=== PATIENT | male | born 1950 | race Caucasian/White ===

== ENCOUNTER 2019-09-05 14:52 | Inpatient (IN) | payer MEDICARE, OTHER ==
[~2019-09-05] VITALS: Ht 190.5 cm; Wt 93.5 kg
--- NOTE | 2019-09-05 15:30 | NUR ---
BIB BROTHER C/O CP, SOB, DIARRHEA, BURNING ON URINATION, WEAKNESS. PATIENT A/OX4, BREATHING EVEN AND UNLABORED, NO SOB NOTED, ATTACHED TO THE GRADE TEACHER.
[2019-09-05 15:47] LABS: BASOPHILS # (AUTO) 0.1 /CMM (0.0-0.2); EOSINOPHILS % (AUTO) 1.2 % (0.0-6.0); HEMATOCRIT 46 % (39-51); HEMOGLOBIN 15.1 g/dL (13.5-17.5); LYMPHOCYTES # (AUTO) 1.5 /CMM (0.8-4.8); LYMPHOCYTES % (AUTO) 23.5 % (20.0-44.0); MEAN CORPUSCULAR HGB CONC 33 g/dl (31.0-36.0); MEAN CORPUSCULAR VOLUME 98 fL (80-96); MONOCYTES # (AUTO) 0.5 /CMM (0.1-1.30); MONOCYTES % (AUTO) 7.8 % (2.0-12.0); NEUTROPHILS # (AUTO) 4.2 /CMM (1.8-8.9); NEUTROPHILS % (AUTO) 66.5 % (43.0-81.0); PLATELET COUNT (AUTO) 154 /CMM (150-450); RED BLOOD CELL COUNT(AUTO) 4.71 MIL/uL (4.5-6.0); WHITE BLOOD COUNT (AUTO) 6.4 K/uL (4.3-11.0)
[2019-09-05 16:06] LABS: CALCIUM, SERUM 9.5 mg/dL (8.5-10.1); CREATININE 1.2 mg/dL (0.6-1.3); POTASSIUM 3.7 mmol/L (3.5-5.1)
[2019-09-05 16:11] LABS: ALBUMIN 3.7 g/dL (3.4-5.0); BILIRUBIN,DIRECT 0.4 mg/dL (0.0-0.2); BILIRUBIN,TOTAL 2.7 mg/dL (0.2-1.0); TOTAL PROTEIN, SERUM 7.3 g/dL (6.4-8.2)
--- NOTE | 2019-09-05 16:46 | NUR ---
MICKY BAUER MADE AWARE OF ELEVATED BP. URINE SAMPLE SENT TO LAB.
[2019-09-05 16:49] LABS: APPEARANCE,URINE Clear (CLEAR); BILIRUBIN,URINE SMALL (NEGATIVE); BLOOD, URINE Negative Ery/uL (NEGATIVE); COLOR,URINE Yellow (YELLOW); KETONES,URINE 15 (NEGATIVE); LEUKOCYTE ESTERASE ,URINE Negative (NEGATIVE); NITRITE, URINE Negative (NEGATIVE); PH,URINE 5.5 (5.0-8.0); PROTEIN,URINE 100 mg/dl (NEGATIVE); UGLUCOSE Negative (NEGATIVE)
[2019-09-05 17:20] LABS: BACTERIA,URINE RARE /HPF (None Seen); SQUAMOUS EPITHELIAL CELL,UR 0-2 /HPF (None Seen)
--- NOTE | 2019-09-05 18:56 | NUR ---
CALLED [facility]
--- NOTE | 2019-09-05 19:14 | NUR ---
CALLED [facility].
[2019-09-05] MEDS ORDERED: hydrALAZINE HCL IV 20 MG VIAL ONE (19:23)
[2019-09-05] MEDS ORDERED: hydrALAZINE HCL IV 20 MG VIAL IV ONE (19:30)
[2019-09-05] MEDS ORDERED: DONE10TA11 PO (19:36)
[2019-09-05] MEDS ORDERED: INSU100V27 SQ (19:36)
[2019-09-05] MEDS ORDERED: DOXA2TAB PO (19:36)
[2019-09-05] MEDS ORDERED: INSU100V7 SQ (19:36)
[2019-09-05] MEDS ORDERED: CLON0.1T14 PO (19:36)
[2019-09-05] MEDS ORDERED: CARV6.25 PO (19:36)
[2019-09-05] MEDS ORDERED: APIX5TAB4 PO (19:36)
[2019-09-05] MEDS ORDERED: ATOR40TA GT (19:36)
[2019-09-05] MEDS ORDERED: PANT40TA2 PO (19:36)
[2019-09-05] MEDS ORDERED: HYDR-4075 PO (19:36)
[2019-09-05] MEDS ORDERED: ASPI-1100 PO (19:36)
--- NOTE | 2019-09-05 21:13 | NUR ---
REPORT GIVEN TO [facility] ON THE THIRD FLOOR
[2019-09-05] MEDS ORDERED: CLONIDINE HCL 0.1 MG TABLET PO PRN (21:30)
--- NOTE | 2019-09-05 21:36 | NUR ---
PT WAS TRANSFERRED TO THE THIRD FLOOR UNDER ACLS
[2019-09-05 21:50] VITALS: BP 182/73
--- NOTE | 2019-09-05 21:50 | NUR ---
MS RN ADMITTING NOTES PATIENT RECEIVED ONTO UNIT VIA GURNEY ACCOMPANIED BY ER STAFF. PATIENT ABLE TO AMBULATE, BUT UNSTEADY. A/O X4, STABLE ON RA WITH BEATHING EVEN AND UNLABORED, NO SOB NOTED. NO SIGNS OF ACUTE DISTRESS. NO COMPLAINTS OF PAIN OR DISCOMFORT. SKIN ASSESSMENT DONE. TELE MONITORS PLACED. VSS TAKEN. ALL BELONGINGS ACCOUNTED FOR. PATIENT ORIENTED TO ROOM AND STAFF. SAFETY PRECAUTIONS IN PLACE WITH BED IN LOWEST POSITION, CALL LIGHT WITHIN REACH, BREAKS ON, AND SIDE RAILS UP. WILL CONTINUE TO MONITOR.
--- NOTE | 2019-09-05 21:51 | NUR ---
MS RN NOTES PRN CLONIDINE ADMINISTERED DUE TO BP OF 182/ 73/ WILL CONTINUE TO MONITOR
[2019-09-05] MEDS ORDERED: ATORVASTATIN 40 MG TABLET GT SCH (22:00)
[2019-09-05 22:30] VITALS: BP 182/73
[2019-09-05] MEDS ORDERED: ACETAMINOPHEN 325 MG TABLET PO PRN (22:30)
[2019-09-05] MEDS ORDERED: MAGNESIUM HYDROXIDE 30 ML UDC PO PRN (22:30)
[2019-09-05] MEDS ORDERED: Z GUARD REMEDY 2 OZ OINT TP PRN (22:30)
[2019-09-05] MEDS ORDERED: *INSULIN REGULAR(HUMULIN R)HUM 100 UNIT/ML VIAL SQ PRN (22:30)
[2019-09-05] MEDS ORDERED: DEXTROSE 50%-WATER 50 ML DISP.SYRIN IV PRN (22:30)
[2019-09-05] MEDS ORDERED: MORPHINE SULFATE INJ 2 MG/ML DISP.SYRIN IV PRN (22:30)
[2019-09-05] MEDS ORDERED: MAG HYDROX/AL HYDROX/SIMETH 30 ML UDC PO PRN (22:30)
[2019-09-05] MEDS ORDERED: HYDROCODONE/APAP 5/325MG 1 EACH TABLET PO PRN (22:30)
[2019-09-05] MEDS ORDERED: ONDANSETRON HCL/PF 4 MG/2 ML VIAL IVP PRN (22:30)
[2019-09-05] MEDS: DONEPEZIL 5 MG TABLET PO SCH (22:33)
[2019-09-05] MEDS ORDERED: hydrALAZINE HCL IV 20 MG VIAL IV PRN (23:00)
[2019-09-06] VITALS: BP 166/89
[2019-09-06] MEDS: NITROGLYCERIN PACKET 1 GM PACKET TOP SCH ×2 (00:14→05:37)
[2019-09-06 04:00] VITALS: BP 154/87
--- NOTE | 2019-09-06 06:35 | NUR ---
HOME LIGHTING ADVISER CLOSING NOTES PATIENT IN BED RESTING A//O X3- PERIODS OF FORGETFULNESS. STABLE ON RA WITH BREATHING EVEN AND UNLABORED, NO SOB NOTED. NO SIGNS OF ACUTE DISTRESS. NO COMPLAINTS OF PAIN OR DISCOMFORT. TELE MONITOR READING SR WITH OCASSIONAL PVC, PAC. IV LOCATED ON AC #18 SL. SAFETY PRECAUTIONS IN PLACE WITH BED IN LOWEST POSITION, CALL LIGHT WITHIN REACH, BREAKS ON, BED ALARM ON, AND SIDE RAILS UP X2. ALL NEEDS ATTENDED TO THROUGHOUT THE NIGHT. WILL ENDORSE TO ONCOMING SHIFT ABOUT JOSI.
[2019-09-06] MEDS: BLOOD SUGAR DIAGNOSTIC 1 EACH STRIP VI SCH ×4 (06:40→21:24)
[2019-09-06] MEDS: INSULIN REGULAR, HUMAN 100 UNIT/ML 3 ML VIAL SQ PRN ×2 (06:50→18:14)
[2019-09-06 06:57] LABS: CALCIUM, SERUM 9.6 mg/dL (8.5-10.1); CREATININE 1.3 mg/dL (0.6-1.3); MAGNESIUM 1.8 mg/dL (1.8-2.4); PHOSPHORUS 3.1 mg/dL (2.5-4.9); POTASSIUM 3.5 mmol/L (3.5-5.1)
[2019-09-06 08:00] VITALS: BP 163/47
--- NOTE | 2019-09-06 08:20 | NUR ---
ms rn received on bed, awake,alert,oriented x3,not in any form of distress, respirations even and unlabored,no sob noted, lungs are clear,abdomen soft,positive bowel sounds,denies pain at this time,all needs attended.
[2019-09-06] MEDS: hydrALAZINE HCL 10 MG TABLET PO SCH ×3 (09:00→18:10)
[2019-09-06] MEDS ORDERED: ASPIRIN EC 325 MG TABLET.DR PO SCH (09:00)
[2019-09-06] MEDS ORDERED: hydrALAZINE HCL 10 MG TABLET PO SCH (09:00)
[2019-09-06] MEDS ORDERED: CARVEDILOL 6.25 MG TABLET PO SCH (09:00)
[2019-09-06] MEDS: CARVEDILOL 6.25 MG TABLET PO SCH ×2 (09:15→18:10)
[2019-09-06] MEDS: APIXABAN 5 MG TABLET PO SCH ×2 (09:17→18:05)
[2019-09-06] MEDS: VALSARTAN 80 MG TABLET PO SCH (09:17)
[2019-09-06] MEDS: DOXAZOSIN MESYLATE (1 MG) 1 MG TABLET PO SCH ×2 (09:18→18:06)
[2019-09-06] MEDS: PANTOPRAZOLE 40 MG TABLET.DR PO SCH (09:22)
--- NOTE | 2019-09-06 09:30 | NUR ---
ms roberson breakfast served,due meds given,tolerated well.
--- NOTE | 2019-09-06 11:00 | NUR ---
ms rn was seen by pt ,walks w/ walker.
--- NOTE | 2019-09-06 12:00 | NUR ---
ms roberson bs -170 -refused coverage.
[2019-09-06 12:33] LABS: BASOPHILS % (AUTO) 0.6 % (0.0-2.0); EOSINOPHILS % (AUTO) 1.5 % (0.0-6.0); HEMATOCRIT 45 % (39-51); HEMOGLOBIN 14.8 g/dL (13.5-17.5); LYMPHOCYTES # (AUTO) 1.3 /CMM (0.8-4.8); LYMPHOCYTES % (AUTO) 20.5 % (20.0-44.0); MEAN CORPUSCULAR HGB CONC 33 g/dl (31.0-36.0); MEAN CORPUSCULAR VOLUME 98 fL (80-96); MONOCYTES # (AUTO) 0.6 /CMM (0.1-1.30); MONOCYTES % (AUTO) 9.8 % (2.0-12.0); NEUTROPHILS # (AUTO) 4.3 /CMM (1.8-8.9); NEUTROPHILS % (AUTO) 67.6 % (43.0-81.0); PLATELET COUNT (AUTO) 151 /CMM (150-450); RED BLOOD CELL COUNT(AUTO) 4.59 MIL/uL (4.5-6.0); WHITE BLOOD COUNT (AUTO) 6.3 K/uL (4.3-11.0)
[2019-09-06 16:00] VITALS: BP 157/88
--- NOTE | 2019-09-06 18:00 | NUR ---
ms roberson [id number] units of regular insulin given.
--- NOTE | 2019-09-06 19:02 | NUR ---
ms rn on bed, no distress noted.
--- NOTE | 2019-09-06 19:25 | NUR ---
MS RN OPENING NOTES PATIENT AWAKE IN BED. A/OX3-4. ABLE TO VERBALIZE NEEDS. ON ROOM AIR. NO C/O OF SOB OR CHEST PAIN AT THIS TIME. IV PRESENT ON RIGHT AC, SIZE 18, INTACT & PATENT, HEP LOCKED. SAFETY MEASURES IN PLACE. BED LOCKED, SIDE RAIL X2, SEMI-GREEN'S POSITION, CALL LIGHT WITHIN REACH. WILL CONTINUE TO MONITOR.
[2019-09-06 20:07] VITALS: BP_SYST 158; BP_SYST 162; BP_DIAS 90; BP_DIAS 97
[2019-09-06] MEDS: DONEPEZIL 5 MG TABLET PO SCH (21:24)
--- NOTE | 2019-09-07 06:20 | NUR ---
MS RN CLOSING NOTES PATIENT REMAINED STABLE DURING ENTIRE SHIFT. NO ACUTE CHANGES. A/O X3-4. ON ROOM AIR. NO C/O OF SOB OR CHEST PAIN. SAFETY MEASURES IN PLACE. WILL ENDORSE TO DAY SHIFT NURSE TO FOLLOW PLAN OF CARE.
[2019-09-07] MEDS: BLOOD SUGAR DIAGNOSTIC 1 EACH STRIP VI SCH ×4 (06:40→21:10)
[2019-09-07] MEDS: PANTOPRAZOLE 40 MG TABLET.DR PO SCH (06:40)
[2019-09-07] MEDS: INSULIN REGULAR, HUMAN 100 UNIT/ML 3 ML VIAL SQ PRN ×3 (06:56→21:53)
--- NOTE | 2019-09-07 07:30 | NUR ---
ms rn received on bed, awake,alert, oriented x3,periods of confusion,not in nay form of distress, respirations even and unlabored,no sob noted,will monitor patient.
[2019-09-07 08:00] VITALS: BP 168/86
[2019-09-07 08:25] LABS: ALBUMIN 3.4 g/dL (3.4-5.0); BILIRUBIN,TOTAL 2.3 mg/dL (0.2-1.0); CALCIUM, SERUM 9.1 mg/dL (8.5-10.1); CREATININE 1.3 mg/dL (0.6-1.3); MAGNESIUM 1.7 mg/dL (1.8-2.4); PHOSPHORUS 3.5 mg/dL (2.5-4.9); POTASSIUM 3.4 mmol/L (3.5-5.1); TOTAL PROTEIN, SERUM 6.9 g/dL (6.4-8.2)
[2019-09-07 08:27] LABS: BASOPHILS % (AUTO) 0.8 % (0.0-2.0); EOSINOPHILS % (AUTO) 2.4 % (0.0-6.0); HEMATOCRIT 44 % (39-51); HEMOGLOBIN 14.4 g/dL (13.5-17.5); LYMPHOCYTES # (AUTO) 1.8 /CMM (0.8-4.8); MEAN CORPUSCULAR HGB CONC 33 g/dl (31.0-36.0); MEAN CORPUSCULAR VOLUME 98 fL (80-96); MONOCYTES # (AUTO) 0.6 /CMM (0.1-1.30); MONOCYTES % (AUTO) 10.6 % (2.0-12.0); NEUTROPHILS # (AUTO) 2.8 /CMM (1.8-8.9); NEUTROPHILS % (AUTO) 52.2 % (43.0-81.0); PLATELET COUNT (AUTO) 147 /CMM (150-450); RED BLOOD CELL COUNT(AUTO) 4.46 MIL/uL (4.5-6.0); WHITE BLOOD COUNT (AUTO) 5.3 K/uL (4.3-11.0)
[2019-09-07] MEDS ORDERED: POTASSIUM CHLORIDE 20 MEQ TAB.PRT.SR PO SCH (09:30)
--- NOTE | 2019-09-07 09:30 | NUR ---
ms roberson breakfast served,due meds given,tolerated well.
[2019-09-07] MEDS: DOXAZOSIN MESYLATE (1 MG) 1 MG TABLET PO SCH ×2 (09:33→17:58)
[2019-09-07] MEDS: CARVEDILOL 6.25 MG TABLET PO SCH ×2 (09:33→18:00)
[2019-09-07] MEDS: VALSARTAN 80 MG TABLET PO SCH (09:33)
[2019-09-07] MEDS: APIXABAN 5 MG TABLET PO SCH ×2 (09:34→18:01)
[2019-09-07] MEDS: Magnesium 1GM/D5W 100ML PREMIX 100 ML IV SCH ×2 (09:44→14:36)
[2019-09-07] MEDS: hydrALAZINE HCL 10 MG TABLET PO SCH ×3 (09:45→17:59)
--- NOTE | 2019-09-07 10:00 | NUR ---
ms rn on bed, no distress noted.
[2019-09-07 12:00] VITALS: BP 122/72
[2019-09-07 16:00] VITALS: BP 144/84
--- NOTE | 2019-09-07 18:00 | NUR ---
ms rn on bed, eating dinner, all needs attended.
--- NOTE | 2019-09-07 19:52 | NUR ---
MS RN OPENING NOTES RECEIVED REPORT FROM AM NURSE. PATIENT IS LAYING IN BED. PATIENT IS ON ROOM AIR, NO SOB/ ACUTE RESPIRATORY DISTRESS NOTED. CALL LIGHT IS WITHIN REACH. BED IS IN LOWEST LOCKED POSITION WITH SIDE RAILS UP. NO COMPLAINTS OF PAIN AT THIS TIME. WILL CONTINUE TO MONITOR.
[2019-09-07 20:00] VITALS: BP 114/72
[2019-09-07] MEDS: DONEPEZIL 5 MG TABLET PO SCH (21:05)
--- NOTE | 2019-09-08 06:20 | NUR ---
MS RN CLOSING NOTES PATIENT IS LAYING IN BED WATCHING TV, BED IS IN LOWEST LOCKED POSITION WITH SIDE RAILS UP, SEMI FOWLERS. PATIENT APPEARS TO BE COMFORTABLE/ NO COMPLAINTS OF PAIN. CALL LIGHT IS WITHIN REACH. PATIENT IS ON ROOM AIR, NO SOB/ ACUTE RESPIRATORY DISTRESS NOTED. IV ON RIGHT WRIST #18G IS PATENT AND INTACT. WILL ENDORSE TO AM NURSE.
[2019-09-08] MEDS: BLOOD SUGAR DIAGNOSTIC 1 EACH STRIP VI SCH ×2 (06:30→12:53)
[2019-09-08] MEDS: PANTOPRAZOLE 40 MG TABLET.DR PO SCH (06:32)
[2019-09-08 06:45] LABS: CREATININE 1.3 mg/dL (0.6-1.3); MAGNESIUM 2.1 mg/dL (1.8-2.4); POTASSIUM 3.7 mmol/L (3.5-5.1)
[2019-09-08] MEDS: INSULIN REGULAR, HUMAN 100 UNIT/ML 3 ML VIAL SQ PRN ×2 (06:47→12:59)
[2019-09-08 08:00] VITALS: BP 158/98
--- NOTE | 2019-09-08 08:00 | NUR ---
RN NOTES Received patient in the bed eating breakfast, tolerated well. 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 safety precaution maintained all the time.
[2019-09-08] MEDS ORDERED: hydrALAZINE HCL 10 MG TABLET PO SCH (09:00)
[2019-09-08] MEDS ORDERED: ISOSORBIDE DINITRATE (20MG) 20 MG TABLET PO SCH (09:00)
[2019-09-08] MEDS: DOXAZOSIN MESYLATE (1 MG) 1 MG TABLET PO SCH (09:02)
[2019-09-08] MEDS: CARVEDILOL 6.25 MG TABLET PO SCH (09:04)
[2019-09-08] MEDS: VALSARTAN 80 MG TABLET PO SCH (09:08)
[2019-09-08] MEDS: APIXABAN 5 MG TABLET PO SCH (09:08)
--- NOTE | 2019-09-08 11:00 | NUR ---
RN NOTES PATIENT WILL DISCHARGE SNF VIA MD HOWARD ORDER.
[2019-09-08] MEDS ORDERED: hydrALAZINE HCL 50 MG TABLET PO SCH (13:00)
[2019-09-08 13:02] VITALS: BP 150/68
--- NOTE | 2019-09-08 15:31 | NUR ---
AMBULATORY CARE COORDINATOR NOTES PATIENT DISCHARGE AT THIS TIME GOING SNF. PATIENT A/O X3, STABLE NO ACUTE RESPIRATORY DISTRESS, V/S STABLE. MED RECONCILIATION AND DISCHARGE ORDER REVIEWED AND EXPLAINED TO PATIENT. REPORT GIVEN SNF RN . RN VERBALIZED UNDERSTANDING. BELONGING WITH THE PATIENT. LEFT FAMILY MASSAGE ABOUT DISCHARGE PLANING. PATIENT WILL FOLLOW SNF INDUSTRIAL ECONOMICS TEACHER. PATIENT SIGN PAPERWORK. PATIENT BANDSAW OPERATOR BY AMBULANCE.
== END 2019-09-08 15:30 | DRG 304 ==
LOC: ER 14:53 → TELE 20:52 → MED 09-06 08:45
PROVIDERS: ADMIT Internal Medicine; ATTEND Legal Medicine
DX: I16.0 Hypertensive urgency (principal); G93.41 Metabolic encephalopathy; I10 Essential (primary) hypertension; K80.20 Calculus of gallbladder without cholecystitis without obstruction; E78.5 Hyperlipidemia, unspecified; I48.91 Unspecified atrial fibrillation; Z79.01 Long term (current) use of anticoagulants; Z79.4 Long term (current) use of insulin; Z79.82 Long term (current) use of aspirin; Z86.73 Personal history of transient ischemic attack (TIA), and cerebral infarction without residual deficits; Z95.0 Presence of cardiac pacemaker; E80.6 Other disorders of bilirubin metabolism; E11.9 Type 2 diabetes mellitus without complications; R40.2413 Glasgow coma scale score 13-15, at hospital admission
CPT/HCPCS: 36415; 71045-TC; 76705-TC; 80048-TC; 80053-TC; 80061-TC; 80076-TC; 81000-TC; 82962-TC; 83735-TC; 84100-TC; 84484-TC; 85025-TC; 87081-TC; 97116-TC; 97530-TC; G0378; J0360; J1815; J3475